=== PATIENT | male | born 1985 | race Caucasian/White ===

== ENCOUNTER 2024-04-10 09:12 | Outpatient (CLI) | payer BC, SELFPAY ==
--- OUTSIDE RECORDS SUMMARY | 2024-04-27 12:32 | XMS_ITS | Clinical Summary ---
Author Organization [facility] Address [place], [place] [address] Care Team Providers Care Culture Manager Name Role Phone Rohith Worrell MD Primary Care Provider Allergies No known active allergies Medications Medication Sig Dispensed Refills Start Date End Date Status albuterol (PROVENTIL; VENTOLIN) 90 mcg/actuation inhalerIndications:E xercise induced bronchospasm Inhale 1-2 Puffs by mouth every 4 hours if needed. 1 Inhaler 1 08/22/2012 Active albuterol HFA 90 mcg/actuation inhalerIndications:E xercise-induced asthma Inhale 2 Puffs by mouth 4 times daily if needed. 1 Inhaler 1 11/12/2017 Active predniSONE (DELTASONE) 20 mg tabletIndications:Nata mbar discogenic pain syndrome 1 three times daily for 3 days, then twice daily for 3 days, then daily for 3 days, then stop. 18 tablet 03/30/2018 Active methylPREDNISolone (Medrol, Godwin,) 4 mg tabletIndications:Nata mbar disc herniation Take by mouth as instructed per packaging. 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 02/19/2016 Exercise induced bronchospasm 08/22/2012 Encounters Date Type Department Care Team Description 04/17/2024 Lab Requisition [facility] [phone] Thalia Pardo MD from Last 3 Months Immunizations Name Administration Dates Next Due Hepatitis A (Adult) 12/18/2005 Tdap 11/18/2011 Yellow Fever 12/18/2005 Social History Tobacco Use Types Packs/Day Years Used Date Smoking Tobacco: Never Smokeless Tobacco: Never Tobacco Cessation:Counseling Given: Yes Alcohol Use Standard Drinks/Week Comments Yes 0 (1 standard drink = 0.6 oz pur e alcohol) socially Sex and Gender Information Value Date Recorded Sex Assigned at Not on file Gender Identity Not on file Sexual Orientation Not on file Obstetrics History Last Filed Vital Signs Vital Sign Reading Time Taken Comments Blood Pressure 129/82 07/06/2018 7:42 AM CDT Pulse 64 07/06/2018 7:42 AM CDT Temperature 36.4 ??C (97.6 ??F) 07/06/2018 7:42 AM CD T Respiratory Rate - - Oxygen Saturation 97% 07/06/2018 7:42 AM CDT Inhaled Oxygen Concentration - - Weight 98.8 kg (217 lb 12.8 oz) 07/06/2018 7:42 AM CDT Height 182.3 cm (5' 11.77) 07/06/2018 7:42 AM C DT Body Mass Index 29.73 07/06/2018 7:42 AM CDT Plan of Treatment Health Maintenance Due Date Last Done Comments HIV for age 15-65 1999 Hepatitis C screening for age 18-79 2002 Depression screening for age 12+ 10/16/2017 10/16/2016 BMI (ht and wt on same day) for age 18+ 07/06/2019 07/06/2018, 12/04/2017, 11/12/2017, Additional history exists Lipids for age 35-44 2019 Tetanus booster 11/18/2021 11/18/2011 (Comp leted outside of [facility]), 11/18/2011 COVID-19 vaccine series (2022-24 season) 2023 Influenza for age 9-49 07/09/2024 Tdap Completed 11/18/2011 Pneumococcal series for age 6-64 Aged Out No longer eligible based on patient's age to complete this topic Procedures Procedure Name Priority Date/Time Associated Diagnosis Comments LAB TRACKING EVENT Routine 04/17/2024 11 :00 AM CDT PATH TISSUE EXAM Routine 04/17/2024 11:0 0 AM CDT from Last 3 Months Results * LAB TRACKING EVENT (04/17/2024 11:00 AM CDT) Other (Other) Client Collect / Unknown 04/17/2024 11:00 AM CDT 04/17/2024 3:17 PM CDT Thalia Pardo MD LAB BILL ONLY [facility] [address] [place] [address], * PATH TISSUE EXAM (04/17/2024 11:00 AM CDT) Case Report Pathology Report ?Case: [id number] ? Authorizing Provider: ??Thalia Pardo MD ??Collected: ? 04/17/2024 1100 ? Ordering Location: ? [facility] ?Received: ?04/17/2024 1735 ? Pathologist: ? Radha Peters MD ? Specimens: ?? A) - Right Vas Deferens ? B) - Left Vas Deferens ? 04/18/2024 2:55 PM CDT [facility] Final Diagnosis A) VAS DEFERENS, RIGHT, VASECTOMY: Complete luminal cross-section of vas deferens identified B) VAS DEFERENS, LEFT, VASECTOMY: Complete luminal cross-section of vas deferens identified 04/18/2024 2:55 PM CDT [facility] Clinical Information Permanent sterilization 04/18/2024 2:55 PM CDT [facility] Gross Description A) Received in formalin, labeled with the patient's name and right vas def, is a 1.9 cm in length by 0.2 cm in diameter cylindrical segment of vas deferens. ??The specimen is entirely submitted in one cassette for sectioning by histology. B) Received in formalin, labeled with the patient's name and left vas def, is a 2.1 cm in length by 0.3 cm in diameter cylindrical segment of vas deferens. ??The specimen is entirely submitted in one cassette for sectioning by histology. EKW 04/17/2024 04/18/2024 2:55 PM CDT [facility] Microscopic Description The final diagnosis is based on microscopic examination of appropriate sections of all specimens. 04/18/2024 2:55 PM CDT [facility] Additional Information Interpreted at [facility] - [address], [place] [address] 04/18/2024 2:55 PM CDT [facility] Other (Right Vas Deferens) 04/17/2024 11:00 AM CDT 04/17/2024 5:35 PM CDT Specimen (specimen) (Left Vas Deferens) 04/17/2024 11:00 AM CDT 04/17/2024 5:35 PM CDT Thalia Pardo MD [facility]OLOG[facility] [address] [place] [address], from Last 3 Months Care Teams Culture Manager Relationship Specialty Start Date End Date Rohith Worrell MD [address] [place] [address] PCP - General Internal Medicine 03/30/18
== END 2024-04-10 09:13 | disposition home or self-care (01) ==
LOC: NFLDREF 04-27 12:31
PROVIDERS: PCP Internal Medicine; Referring Provider Internal Medicine; Visit Provider Family Medicine
DX: Z13.1 Encounter for screening for diabetes mellitus (principal); Z13.220 Encounter for screening for lipoid disorders
CPT/HCPCS: 80061; 82947